=== PATIENT | male | born 1970 | race Caucasian/White ===

== ENCOUNTER 2016-11-15 15:44 | Emergency (ER) | payer SELFPAY ==
[2016-11-15 15:52] VITALS: BP 151/95
--- NOTE | 2016-11-15 16:20 | ER Document Report ---
ED Medical Screen (RME) - General Chief Complaint: Headache Stated Complaint: HEADACHE Time Seen by Provider: 11/15/16 16:06 Notes: This 46-year-old male patient reports a 3 day history of a headache above the right eye. It throbs feels like something is hitting him and lasts only 1-2 seconds with each episode. He has never had anything like this before. He did recently start taking blood pressure medication. I have greeted and performed a rapid initial assessment of this patient. A comprehensive ED assessment and evaluation of the patient, analysis of test results and completion of the medical decision making process will be conducted by additional ED providers. TRAVEL OUTSIDE OF THE [place] IN LAST 30 DAYS: No - Related Data Allergies/Adverse Reactions: No Known Allergies Allergy (Verified 11/15/16 15:49) Past Medical History - Social History Chew tobacco use (# tins/day): No Frequency of alcohol use: None Drug Abuse: None - Past Medical History Cardiac Medical History: Reports: Hx Hypercholesterolemia, Hx Hypertension Renal/ Medical History: Denies: Hx Peritoneal Dialysis Surgical Hx: Negative - Immunizations Hx Diphtheria, Pertussis, Tetanus Vaccination: No Physical Exam - Vital signs Vitals: Temp Pulse Resp BP Pulse Ox 98.3 F 93 18 151/95 H 98 11/15/16 15:49 11/15/16 15:49 11/15/16 15:49 11/15/16 15:49 11/15/16 15:49 Course - Vital Signs Vital signs: Temp Pulse Resp BP Pulse Ox 98.3 F 93 18 151/95 H 98 11/15/16 15:49 11/15/16 15:49 11/15/16 15:49 11/15/16 15:49 11/15/16 15:49
--- NOTE | 2016-11-15 16:57 | RADIOLOGY REPORT (SQ) ---
EXAM DESCRIPTION: CT HEAD WITHOUT COMPLETED DATE/TIME: 11/15/2016 4:43 pm REASON FOR STUDY: right frontal throbbing headache COMPARISON: None. TECHNIQUE: Axial images acquired through the brain without intravenous contrast. Images reviewed wi th bone, brain and subdural windows. Images stored on PACS. All CT scanners at this facility use dose modulation, iterative reconstruction, and/or weight based d osing when appropriate to reduce radiation dose to as low as reasonably achievable (ALARA). [facility]: Dose Right [facility]: CareDose [facility]: Dose Right [facility]: Teradose 4D [facility]: [employer] RADIATION DOSE: 64.61 mGy. LIMITATIONS: None. FINDINGS: VENTRICLES: Normal size and contour. CEREBRUM: No masses. No hemorrhage. No midline shift. Normal perea/white matter differentiation. N o evidence for acute infarction. CEREBELLUM: No masses. No hemorrhage. No alteration of density. No evidence for acute infarction. EXTRAAXIAL SPACES: No fluid collections. No masses. ORBITS AND GLOBE: No intra- or extraconal masses. Normal contour of globe without masses. CALVARIUM: No fracture. PARANASAL SINUSES: No fluid or mucosal thickening. SOFT TISSUES: No mass or hematoma. OTHER: No other significant finding. IMPRESSION: NORMAL BRAIN CT WITHOUT CONTRAST. TECHNICAL DOCUMENTATION: JOB ID: [id number] Quality ID # [id number]: Final reports with documentation of one or more dose reduction techniques (e.g., Au tomated exposure control, adjustment of the mA and/or kV according to patient size, use of iterative reconstruction technique) 2010 [employer]- All Rights Reserved
--- NOTE | 2016-11-15 20:25 | ER Document Report ---
ED Headache - General Chief Complaint: Headache Stated Complaint: HEADACHE Time Seen by Provider: 11/15/16 16:06 Mode of Arrival: Ambulatory Information source: Patient Notes: Patient presents complaining of headache pain for the past 3 days. Patient states that headache pain has been off and on and is currently resolved. Patient states that yesterday he was just started on the blood pressure pill. Patient does report that he has had increased salt intake which he feels coincides with when he has had headache pain. Patient denies any fever, head injury, nausea or vomiting. Patient saw his doctor about his headache symptoms and was put on the blood pressure medication but told he may need to follow-up with a neurologist. Patient states that someone he works with advised him that he should come to the hospital to get his symptoms checked out. Patient denies any significant change in his symptoms today as compared to what he has had in the past. TRAVEL OUTSIDE OF THE [place] IN LAST 30 DAYS: No - HPI Patient complains to provider of: Headache Onset: This evening Onset was: Gradual Timing: Gone now Quality of pain: No pain Severity: Mild Pain Level: 0 Associated symptoms: denies: Dizzy, Double/blurred vision, Fainting, Lightheaded , Trouble walking Similar symptoms previously: Yes Recently seen / treated by doctor: Yes - Related Data Allergies/Adverse Reactions: No Known Allergies Allergy (Verified 11/15/16 15:49) Past Medical History - General Information source: Patient - Social History Smoking Status: Current Some Day Smoker Chew tobacco use (# tins/day): No Frequency of alcohol use: None Drug Abuse: None Occupation: pressure washing Family History: Reviewed & Not Pertinent Patient has suicidal ideation: No Patient has homicidal ideation: No - Past Medical History Cardiac Medical History: Reports: Hx Hypercholesterolemia, Hx Hypertension Renal/ Medical History: Denies: Hx Peritoneal Dialysis Surgical Hx: Negative - Immunizations Hx Diphtheria, Pertussis, Tetanus Vaccination: No Review of Systems - Review of Systems Constitutional: No symptoms reported. denies: Fever, Recent illness EENT: No symptoms reported Cardiovascular: No symptoms reported. denies: Chest pain Respiratory: No symptoms reported. denies: Cough, Short of breath Gastrointestinal: No symptoms reported. denies: Nausea, Vomiting Genitourinary: No symptoms reported Male Genitourinary: No symptoms reported Musculoskeletal: No symptoms reported Skin: No symptoms reported Hematologic/Lymphatic: No symptoms reported Neurological/Psychological: Headaches. denies: Weakness, Lost consciousness Physical Exam - Vital signs Vitals: Temp Pulse Resp BP Pulse Ox 98.3 F 93 18 151/95 H 98 11/15/16 15:49 11/15/16 15:49 11/15/16 15:49 11/15/16 15:49 11/15/16 15:49 - General General appearance: Appears well, Alert In distress: None - HEENT Head: Normocephalic, Atraumatic Eyes: Normal Conjunctiva: Normal Extraocular movements intact: Yes Pupils: PERRL Ears: Normal External canal: Normal Nasal: Normal Mouth/Lips: Normal Mucous membranes: Normal Neck: Normal, Supple. No: Lymphadenopathy, Meningismus - Respiratory Respiratory status: No respiratory distress Chest status: Nontender Breath sounds: Normal. No: Rales, Rhonchi, Stridor, Wheezing Chest palpation: Normal - Cardiovascular Rhythm: Regular Heart sounds: S1 appreciated, S2 appreciated Murmur: No - Back Back: Normal, Nontender. No: Vertebra tenderness - Extremities General upper extremity: Normal inspection, Nontender, Normal strength General lower extremity: Normal inspection, Nontender, Normal strength - Neurological Neuro grossly intact: Yes Cognition: Normal Orientation: AAOx4 Derry Coma Scale Eye Opening: Spontaneous Smiley Coma Scale Verbal: Oriented Derry Coma Scale Motor: Obeys Commands Derry Coma Scale Total: 15 Speech: Normal. No: Dysarthria Cranial nerves: Normal. No: Facial palsy, Tongue deviation Cerebellar coordination: Normal, Heel-cai, Finger-nose rhombey, Rapid alt. movements. No: Gait ataxia Motor strength normal: LUE, RUE, LLE, RLE - Psychological Associated symptoms: Normal affect, Normal mood - Skin Skin Temperature: Warm Skin Moisture: Dry Skin Color: Normal Course - Vital Signs Vital signs: Temp Pulse Resp BP Pulse Ox 98.3 F 93 18 151/95 H 98 11/15/16 15:50 11/15/16 15:50 11/15/16 15:50 11/15/16 15:50 11/15/16 15:50 Discharge - Discharge Clinical Impression: Hx of essential hypertension Headache Qualifiers: Headache type: unspecified Headache chronicity pattern: episodic headache Intractability: not intractable Qualified Code(s): R51 - Headache Condition: Stable Disposition: HOME, SELF-CARE Instructions: Headache ([facility]) Additional Instructions: Return immediately for any new or worsening symptoms Followup with your primary care provider, call tomorrow to make a followup appointment Follow up with the neurologist for any continued headache problems Your Blood pressure was elevated today, continues to take your blood pressure medication as prescribed and recheck with your primary doctor Prescriptions: Butalb/Acetaminophen/Caffeine [Fioricet (50-325-40 mg) Tablet] 1 - 2 tab PO Q4H #15 each Forms: Elevated Blood Pressure Referrals: [facility] [Provider Group] - Follow up as needed ADAN WEIR MD [ACTIVE STAFF] - Follow up as needed
== END 2016-11-15 20:57 | disposition home or self-care (01) ==
LOC: ER 15:44
DX: R51 Headache (principal); I10 Essential (primary) hypertension; F17.200 Nicotine dependence, unspecified, uncomplicated
CPT/HCPCS: 70450; 99284

== ENCOUNTER 2017-06-25 18:32 | Emergency (ER) | payer SELFPAY ==
[2017-06-25 18:40] VITALS: BP 137/80
[2017-06-25] MEDS ORDERED: DOCUSATE SODIUM 100 MG CAPSULE RT_EAR ONE (20:17)
--- NOTE | 2017-06-25 20:24 | ER Document Report ---
ED ENT - General Chief Complaint: Ear Pain Stated Complaint: RIGHT EAR RINGING, STOPPED UP Time Seen by Provider: 06/25/17 20:13 Mode of Arrival: Ambulatory Information source: Patient, [facility] Records Notes: This 46-year-old male patient comes emergency room complaining of right ear pain , decreased hearing, and fluid draining for the past 4-5 days. It started out as pressure in the ear. He has had a little bit of runny nose, no cough, never really developed URI symptoms. He has been putting drops in the ear for wax removal. That may be the fluid that was draining. There is no fever, no swelling to the outer ear, no nausea vomiting diarrhea or cough. TRAVEL OUTSIDE OF THE [place] 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 Family History: Reviewed & Not Pertinent Patient has suicidal ideation: No Patient has homicidal ideation: No - Past Medical History Cardiac Medical History: Reports: Hx Hypercholesterolemia, Hx Hypertension Pulmonary Medical History: Reports: None EENT Medical History: Reports: None Neurological Medical History: Reports: None Endocrine Medical History: Reports: None Renal/ Medical History: Reports: None GI Medical History: Reports: None Musculoskeltal Medical History: Reports None Skin Medical History: Reports None Psychiatric Medical History: Reports: None Surgical Hx: Negative - Immunizations Hx Diphtheria, Pertussis, Tetanus Vaccination: No Review of Systems - Review of Systems Constitutional: No symptoms reported EENT: See HPI Cardiovascular: No symptoms reported Respiratory: No symptoms reported Gastrointestinal: No symptoms reported Genitourinary: No symptoms reported Musculoskeletal: No symptoms reported Skin: No symptoms reported Hematologic/Lymphatic: No symptoms reported Neurological/Psychological: No symptoms reported Physical Exam - Vital signs Vitals: Temp Pulse Resp BP Pulse Ox 98.2 F 77 18 137/80 H 96 06/25/17 18:39 06/25/17 18:39 06/25/17 18:39 06/25/17 18:39 06/25/17 18:39 - General General appearance: Appears well, Alert In distress: None - HEENT Head: Normocephalic, Atraumatic Eyes: Normal Pupils: PERRL Ears: Normal External canal: Other - Both ears have considerable wax, there is a slight pathway seen to the TM on the left and it appears normal. The right side wax is consistent with him having put drops in it over the last few days. There is no visualization of the TM due to the amount of wax in the canal. Hearing loss: Right - There is some decrease and muffling of his hearing on the right at this time by patient history. Pharynx: Normal Neck: Normal - Respiratory Respiratory status: No respiratory distress - Cardiovascular Rhythm: Regular - Abdominal Inspection: Normal - Back Back: Normal - Extremities General upper extremity: Normal inspection General lower extremity: Normal inspection - Neurological Neuro grossly intact: Yes - Psychological Associated symptoms: Normal affect, Normal mood - Skin Skin Temperature: Warm Skin Moisture: Dry Skin Color: Normal Course - Re-evaluation Re-evalutation: 06/25/17 20:25 Colace drops were placed in the right ear canal to soften the wax prior to irrigation. This will be done so that the TM can be visualized. 06/25/17 21:13 After irrigating, very little came out but the patient did notice when he pulled on his external ear that he could hear a little bit better. Looking into the ear, there is considerable wax occluding the entire canal remaining. Instructed to use Debrox drops several times a day in both ears to soften the earwax up prior to making another attempt to irrigate them. - Vital Signs Vital signs: Temp Pulse Resp BP Pulse Ox 98.2 F 77 18 137/80 H 96 06/25/17 18:39 06/25/17 18:39 06/25/17 18:39 06/25/17 18:39 06/25/17 18:39 Discharge - Discharge Clinical Impression: Impacted cerumen of both ears Condition: Stable Disposition: HOME, SELF-CARE Additional Instructions: Place Debrox drops in both ears and let them soak for 10-15 minutes. Do this 3- 4 times daily. Follow-up with a local medical provider or ENT doctor in 2 3 days to recheck your ears and see if the wax could be irrigated free. RETURN TO THE EMERGENCY ROOM IF ANY NEW OR WORSENING SYMPTOMS.
== END 2017-06-25 21:22 | disposition home or self-care (01) ==
LOC: ER 18:32
DX: H61.23 Impacted cerumen, bilateral (principal); H92.01 Otalgia, right ear; R09.89 Other specified symptoms and signs involving the circulatory and respiratory systems; I10 Essential (primary) hypertension; Z87.891 Personal history of nicotine dependence
CPT/HCPCS: 99282